=== PATIENT | male | born 1945 | race Caucasian/White ===

== ENCOUNTER → 2018-08-10 | Outpatient (CLI) | payer MEDICARE, BC ==
[~2018-08-10] MED LIST: CHOL10003 PO; LOSA-73 PO; METO25TA4 PO; OMEP40CA5 PO; PSYL6PAC PO; RANI300T3 PO; RIVA20TA2 PO
--- NOTE | 2018-08-10 10:53 | KCIC ---
EXAM: Lumbar spine MRI without contrast. HISTORY: Back pain and right side sciatica. TECHNIQUE: Multiplanar, multisequence magnetic resonance imaging of the lumbar spine was performed without contrast. COMPARISON: Abdomen and pelvis CT dated 11/19/2014. FINDINGS: There is mild lumbar levoscoliosis. There is grade 1 anterolisthesis of L4 on L5, measuring 7 mm. There is degenerative endplate remodeling predominantly at this level. There is no suspicious osseous lesion. There is no acute or subacute fracture. The conus terminates at T12. There is fluid signal intensity within the superior ventral peritoneal cavity on the sagittal images, excluded from the [id number] on the axial images. This is consistent with a left hepatic cyst demonstrated on the prior CT. At L1-L2, there is mild bilateral facet arthropathy. There is no stenosis. At L2-L3, there is mild bilateral facet arthropathy. There is no stenosis. At L3-L4, there is mild bilateral facet arthropathy. There is mild left foraminal stenosis. At L4-L5, there is a left foraminal to extra foraminal disc protrusion with 5 mm superior extrusion superimposed on a disc bulge and endplate remodeling. There is severe bilateral facet arthropathy. There is hypertrophy of the ligamentum flavum. There is grade 1 anterolisthesis. There is mild right and moderate left foraminal stenosis with abutment of the exiting left L4 nerve root. There is moderate to severe central canal stenosis. There are right hemilaminectomy changes. At L5-S1, there is right lateral predominant endplate osteophytosis. There is moderate left facet arthropathy. There is epidural lipomatosis contributing to mild narrowing of the thecal sac. IMPRESSION: 1. L4-L5: Left foraminal to extra foraminal disc protrusion with superior extrusion superimposed on a disc bulge, endplate remodeling, severe facet arthropathy and hypertrophy of the ligamentum flavum. The combination of these findings and grade 1 anterolisthesis results in mild right and moderate left foraminal stenosis with abutment of the exiting left L4 nerve root and moderate to severe central canal stenosis. There are right hemilaminectomy changes at this level. 2. Degenerative change at the remainder of the lumbar levels, described in detail above. There is associated mild left foraminal stenosis at L3-L4 and mild degenerative thecal sac at L5-S1. 3. Mild lumbar levoscoliosis. Electronically signed by: Lexy Cavanaugh MD (08/10/2018 10:50 AM) [id number]
== END | disposition home or self-care (01) ==
LOC: KCIC MRI 09:24
PROVIDERS: ATTEND Physician Assistant Medical
DX: M51.26 Other intervertebral disc displacement, lumbar region (principal); M48.061 Spinal stenosis, lumbar region without neurogenic claudication; M47.897 Other spondylosis, lumbosacral region; M41.86 Other forms of scoliosis, lumbar region; E88.2 Lipomatosis, not elsewhere classified; M12.88 Other specific arthropathies, not elsewhere classified, other specified site
CPT/HCPCS: 72148

== ENCOUNTER 2018-10-01 10:07 | Day surgery (SDC) | payer MEDICARE, BC ==
[~2018-10-01 10:07] MED LIST changes: +HYDROmorphone 2 MG/ML VIAL IV PRN; +IV RINGERS,LACTATED 1000ML 1,000 ML IV SCH; +LIDOCAINE 1% PF 2 ML VIAL. ID PRN; +MORPHINE SULFATE 2 MG/ML VIAL. IV PRN; +ONDANSETRON PF 4 MG/2 ML VIAL. IV PRN; +PROCHLORPERAZINE 10 MG/2 ML VIAL. IV PRN; +fentaNYL PF VIAL 100 MCG/2 ML VIAL IV PRN
[2018-10-01] MEDS ORDERED: BENZOCAINE ONE 20% MUCOSAL SPRAY. (11:27)
[2018-10-01] MEDS ORDERED: LIDOCAINE 2% VISCOUS 15 ML SOLUTION. ONE (11:27)
[2018-10-01] MEDS ORDERED: LIDOCAINE 2% JELLY 6ML IN APPLICATOR. MM ONE ×2 (11:30→12:15)
[2018-10-01 11:39] LABS: HEMATOCRIT 41.8 % (39.0-53.0); HEMOGLOBIN 14.2 g/dL (13.0-17.5); RED BLOOD COUNT 4.71 x10^6/uL (4.30-5.70); RED CELL DISTRIBUTION WIDTH 13.7 % (11.5-14.5); WHITE BLOOD COUNT 7.5 x10^3/uL (4.0-11.0)
[2018-10-01 11:47] LABS: CALCIUM 9.4 mg/dL (8.5-10.1); CREATININE 1.3 mg/dL (0.7-1.3); POTASSIUM 4.3 mmol/L (3.5-5.1)
[2018-10-01] MEDS ORDERED: LIDOCAINE 2% PF 5 ML VIAL. ONE (12:27)
[2018-10-01] MEDS ORDERED: PROPOFOL 20 ML IV ONE (12:27)
--- NOTE | 2018-10-01 13:00 | EKG ---
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
[2018-10-01 13:15] VITALS: BP 110/62
--- NOTE | 2018-10-01 15:00 | CARD ---
MR#: [id number] Date of Study: 10/01/2018 Ordering Physician: KRYSTA DALEY, Referring Physician: KRYSTA DALEY, Tech: Sravanthi James [facility] APPROVED REPORT EXAM: Transesophageal echocardiogram with color flow Doppler and Synchronized Cardioversion. INDICATION Atrial Fibrillation Reason For Test : Rule out cardiac source of emboli. PROCEDURE After obtaining informed consent, patient underwent transesophageal echo in the PACU. Type of Sedation : General Anesthesia Sedation was administered by . Synchronized Cardioversion acheived with 200 Joules after 1 attempt(s). Throughout the procedure, the blood pressure, pulse oximetry, cardiac rhythm, and rate were monitored . The patient tolerated the procedure without adverse effects. Recovery from general anesthesia was une ventful and vital signs were stable. LEFT VENTRICLE The left ventricle is normal size. Left ventricle systolic function is moderately impaired. The Eject ion Fraction is 35-40%. There is moderate global hypokinesis of the left ventricle. Tissue Doppler im aging reveals moderate left ventricular diastolic dysfunction. No left ventricle thrombus noted on th is study. There is no ventricular septal defect visualized. There is no left ventricular aneurysm. Th ere is no mass noted in the left ventricle. RIGHT VENTRICLE The right ventricle is normal size. There is normal right ventricular wall thickness. The right ventr icular systolic function is normal. ATRIA The left atrium is moderately dilated. The right atrium size is normal. The interatrial septum is int act with no evidence for an atrial septal defect or patent foramen ovale as noted on 2-D or Doppler i maging. There is no thrombus noted in the left atrial appendage. AORTIC VALVE The aortic valve is calcified but opens well. Doppler and Color Flow revealed no significant aortic r egurgitation. There is no significant aortic valvular stenosis. MITRAL VALVE The mitral valve is calcified but opens well. A mild posterior leaflet mitral valve prolapse is prese nt. There is no mitral valve stenosis. Doppler and Color-flow revealed mild to moderate mitral regurg itation. TRICUSPID VALVE The tricuspid valve is normal in structure and function. Doppler and Color Flow revealed trace tricus pid regurgitation. There is no tricuspid valve stenosis. PULMONIC VALVE The pulmonary valve is normal in structure and function. Doppler and Color Flow revealed trace pulmon ic valvular regurgitation. There is no pulmonic valvular stenosis. GREAT VESSELS The aortic root is normal in size. The ascending aorta is normal in size. The pulmonary artery is nor mal. The IVC is normal in size and collapses >50% with inspiration. Critical Notification Critical Value: No <Conclusion> Left ventricle systolic function is moderately impaired. The Ejection Fraction is 35-40%. There is moderate global hypokinesis of the left ventricle. Doppler and Color-flow revealed mild to moderate mitral regurgitation. Successful cardioversion to SR Signed by : Krysta Daley, Electronically Approved : 10/01/2018 14:59:31
--- NOTE | 2018-10-01 15:35 | EKG ---
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
== END 2018-10-01 13:15 | disposition home or self-care (01) ==
LOC: SURG 10:07
PROVIDERS: ATTEND Internal Medicine Cardiovascular Disease
DX: I48.0 Paroxysmal atrial fibrillation (principal); I08.8 Other rheumatic multiple valve diseases; Z79.899 Other long term (current) drug therapy; K21.9 Gastro-esophageal reflux disease without esophagitis; I10 Essential (primary) hypertension; N40.0 Benign prostatic hyperplasia without lower urinary tract symptoms; E78.5 Hyperlipidemia, unspecified; M19.90 Unspecified osteoarthritis, unspecified site; Z90.49 Acquired absence of other specified parts of digestive tract; Z98.890 Other specified postprocedural states; G47.33 Obstructive sleep apnea (adult) (pediatric); Z88.2 Allergy status to sulfonamides; Z88.8 Allergy status to other drugs, medicaments and biological substances
CPT/HCPCS: 36415; 76376; 80048; 85027; 92960; 93005; 93312; 93320; 93325; J2001; J2704

== ENCOUNTER → 2020-10-14 | Outpatient (CLI) | payer MEDICARE, BC ==
[~2020-10-14] MED LIST changes: -HYDROmorphone 2 MG/ML VIAL IV PRN; -IV RINGERS,LACTATED 1000ML 1,000 ML IV SCH; -LIDOCAINE 1% PF 2 ML VIAL. ID PRN; -MORPHINE SULFATE 2 MG/ML VIAL. IV PRN; +OMEP40CA45 PO; -OMEP40CA5 PO; -ONDANSETRON PF 4 MG/2 ML VIAL. IV PRN; -PROCHLORPERAZINE 10 MG/2 ML VIAL. IV PRN; +PSYL1PAC3 PO; -PSYL6PAC PO; -fentaNYL PF VIAL 100 MCG/2 ML VIAL IV PRN
--- NOTE | 2020-10-14 15:33 | KCIC ---
STUDY: MRI of the left shoulder without contrast INDICATION: Left shoulder pain. Limited range of motion. COMPARISON: No previous MRI is available for review. TECHNIQUE: Multiplanar MR imaging of the left shoulder performed without the use of intravenous or in tra-articular contrast. FINDINGS: AC joint: The configuration of the acromion and distal clavicle about the AC joint raises the questio n of previous subacromial decompression. Small volume fluid within the subacromial subdeltoid bursa b ut not to the extent typical of bursitis. Rotator cuff: Tendinopathy of the supraspinatus, infraspinatus and subscapularis without a high-grade or full-thickness tear. Unremarkable teres minor. Rotator cuff muscular bulk is maintained. Reactive edema along the undersurface of the infraspinatus in the setting of loculated paralabral cysts. Labrum: Diffusely torn and partially macerated with multiple paralabral cysts greater in size and num isma posteriorly relative to inferiorly. A few cysts tract medial to the glenoid neck. Long head biceps tendon: Remains intact but with hypertrophic tendinosis primarily of the intra-artic ular portion through the proximal bicipital groove. Cartilage: Extensive full-thickness chondral loss. Bones: End-stage glenohumeral joint arthrosis with articular surface remodeling, osteophytosis and anaya bchondral edema/cystic change. Spurring and cyst formation at the tuberosities in part relating to in sertional tendinosis. Miscellaneous: Small shoulder joint effusion with synovitis and loose bodies. Impression: 1. End-stage glenohumeral arthrosis with associated diffuse tearing/maceration of the labrum. Multip le associated paralabral cysts seen posterior more than inferior a few of which tract medial to the g lenoid neck. The soft tissues around the cysts are edematous to include the undersurface of the infra spinatus muscle. 2. The long head biceps remains intact but is tendinotic. 3. Supraspinatus, infraspinatus and subscapularis tendinosis without a high-grade or full-thickness tear. Rotator cuff muscular bulk is maintained. Electronically signed by: LULÚ SANDERS MD (10/14/2020 3:30 PM) [id number]
== END ==
LOC: KCIC MRI 13:40
PROVIDERS: ATTEND Family Medicine
DX: M19.012 Primary osteoarthritis, left shoulder (principal)
CPT/HCPCS: 73221

== ENCOUNTER → 2021-03-24 | Outpatient (CLI) | payer MEDICARE, BC ==
[~2021-03-24] MED LIST changes: +BARIUM SULFATE 40% (APPLE) 148 GM PWD. PO ONE; -OMEP40CA45 PO; +OMEP40CA7 PO
--- NOTE | 2021-03-24 10:30 | RAD ---
EXAM: Video swallow evaluation. HISTORY: Dysphagia. Feels like food is getting stuck. TECHNIQUE: Fluoroscopic imaging was performed with a speech pathologist during the oral administratio n of barium contrast of varying consistencies. Video images were obtained. 0 fluoroscopic spot images were obtained. The total cross be time was 3.1 minutes. COMPARISON: None. FINDINGS: There is limited epiglottic inversion, a component of which may be due to mass effect from bulky bridging and partially bridging anterior osteophytes involving the cervical spine. There is poo ling of contrast within the valleculae. There is trace penetration of thin barium consistency which i ncreases when drinking with a straw. This is minimally improved with the chin tuck maneuver. No aspir ation is seen. IMPRESSION: 1. Trace penetration of thin barium consistency. 2. Limited epiglottic inversion, a component of which is likely due to mass effect from bulky bridgin g and partially bridging anterior osteophytes involving the cervical spine. This can be seen with dif fuse idiopathic skeletal hyperostosis. 3. Please refer to the separate report by the speech pathologist for clinical recommendations. Electronically signed by: Lexy Cavanaugh MD (03/24/2021 10:28 AM) [id number]
== END ==
LOC: RAD 10:18
PROVIDERS: ATTEND Otolaryngology
DX: K21.9 Gastro-esophageal reflux disease without esophagitis (principal); R13.10 Dysphagia, unspecified; M48.12 Ankylosing hyperostosis [Forestier], cervical region; M25.78 Osteophyte, vertebrae
CPT/HCPCS: 74230; 92526-GN; 92611-GN